=== PATIENT | female | born 1945 | race Caucasian/White ===

== ENCOUNTER 2019-03-20 12:01 | Observation (INO) | payer MEDICARE, OTHER ==
[~2019-03-20] VITALS: Ht 162.6 cm; Wt 49.4 kg
--- OUTSIDE RECORDS SUMMARY | 2019-03-20 12:03 | XMS REPORT | Clinical Summary ---
Author Author [facility] Organization [facility] Address Unknown Phone Unavailable Care Team Providers Care Optoelectronic Technician Name Role Phone Rogers Pickard MD PCP Allergies Not on File Medications Not on file Active Problems Not on file Encounters Care Team Description Date Type Specialty Jomar Rinaldi MD Breast cancer screening 12/18/2018 Hospital Radiology Encounter Jomar Rinaldi MD Breast cancer screening (Primary Dx) 12/04/2018 Transcribe Access Orders after 03/19/2018 Social History Date Tobacco Use Types Packs/Day Years Used Never Assessed Sex Assigned at Date Recorded Not on file Industry Job Start Date Occupation Not on file Not on file Not on file Travel End Travel History Travel Start No recent travel history available. Last Filed Vital Signs Not on file Plan of Treatment Health Maintenance Due Date Last Done Comments COLONOSCOPY SCREENING 1996 SHINGLES VACCINES (#1) 1996 65+ PNEUMOCOCCAL VACCINE 2011 (1 of 2 - PCV13) INFLUENZA VACCINE 02/05/2019 BREAST CANCER SCREENING 12/18/2020 12/18/2018, 12/13/2017, 11/22/2016, Additional history exists Procedures Comments Procedure Name Priority Date/Time Associated Diagnosis MAMMO BREAST SCREEN Routine 12/18/2018 Breast cancer screening TOMOSYNTHESIS BILATERAL 11:49 AM CDT after 03/19/2018 Results * Mammo Breast Screen Tomosynthesis Bilateral (12/18/2018 11:49 AM CDT) Specimen Narrative Performed At EXAMINATION: MAMMO BREAST SCREEN TOMOSYNTHESIS BILATERAL [facility] COMPARISON:Mammograms dated 09/2014 through 12/2017 TECHNIQUE: Bilateral digital screening mammography was performed with tomosynthesis and interpreted using computer-assisted detection. CLINICAL HISTORY: 73-year-old asymptomatic female with history of previous benign right breast biopsy. No personal or family history of breast malignancy. The patient presents for routine screening. FINDINGS: The breast tissue is heterogeneously dense which may obscure small masses. There are multiple bilateral oval circumscribed masses of various sizes which are similar in appearance. Prior mammograms dating back to 2014. There are no new suspicious masses, calcifications or distortions in either breast.There has been no significant interval change compared to prior. IMPRESSION: No specific mammographic features of breast malignancy. BI-RADS 2:BENIGN Recommend comparison with physical examination. In the absence of new clinical findings, the patient should return for bilateral screening mammography in 1 year.Screening bilateral breast ultrasound is offered for dense tissue. This facility is accredited by the [employer] for Mammography. A negative x-ray report should not delay biopsy if a dominant or clinically suspicious mass is present.Not all cancers are identified by x-ray. 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
[2019-03-20] MEDS ORDERED: ASPIRIN 81 MG CHEW TAB PO ONE (12:15)
[2019-03-20] MEDS ORDERED: MORPHINE SULFATE INJ 4 MG/ML INJ 1ML IV PRN ×2 (12:15→17:15)
[2019-03-20 12:40] LABS: BASOPHILS # (AUTO) 0.1 (0.0-0.1); EOSINOPHILS # (AUTO) 0.1 (0.0-0.4); EOSINOPHILS % 2.2 % (0.0-6.0); HEMATOCRIT 32.9 % (34.2-44.1); HEMOGLOBIN 11.1 g/dL (12.0-16.0); LYMPHOCYTES # (AUTO) 1.1 (1.0-3.2); LYMPHOCYTES % 17.3 % (18.0-39.1); MEAN CORPUSCULAR HEMOGLOBIN 31.5 pg (28-32); MEAN CORPUSCULAR HGB CONC 33.7 g/dL (31-35); MEAN CORPUSCULAR VOLUME 93.5 fL (81-99); MONOCYTES # (AUTO) 0.7 (0.2-0.8); MONOCYTES % 10.4 % (4.4-11.3); NEUTROPHILS # (AUTO) 4.3 (2.1-6.9); NEUTROPHILS % 68.6 % (38.7-80.0); PLATELET COUNT 153 x10e3/uL (140-360); RED BLOOD COUNT 3.52 x10e6/uL (3.6-5.1); RED CELL DISTRIBUTION WIDTH 13.2 % (11.7-14.4)
[2019-03-20 13:02] LABS: ALANINE AMINOTRANSFERASE 9 IU/L (0-55); ALBUMIN/GLOBULIN RATIO 0.9 (0.8-2.0); ALKALINE PHOSPHATASE 50 IU/L (40-150); ANION GAP 10.8 mmol/L (8-16); BLOOD UREA NITROGEN 10 mg/dL (7-26); BUN/CREATININE RATIO 13 (6-25); CALCIUM 8.6 mg/dL (8.4-10.2); CARBON DIOXIDE 28 mmol/L (22-29); CHLORIDE 100 mmol/L (98-107); CREATINE KINASE 22 IU/L (29-168); CREATININE, SERUM 0.78 mg/dL (0.57-1.11); EST GLOMERULAR FILTRATION RATE > 60 ML/MIN (60-); GLUCOSE 91 mg/dL (74-118); POTASSIUM 3.8 mmol/L (3.5-5.1); SODIUM 135 mmol/L (136-145)
[2019-03-20] MEDS ORDERED: MORPHINE SULFATE 2 MG/ML SYR 1ML IV PRN (13:45)
[2019-03-20] MEDS ORDERED: ONDANSETRON HCL INJ 2MG/ML 2ML 2 MG/ML VIAL IV PRN (13:45)
--- NOTE | 2019-03-20 15:00 | NUR ---
PT INFORMED ON PLAN OF CARE, OFFERED PAIN MEDICATION BUT CURRENTLY DENIES PAIN OR DISCOMFORTS, NO NEEDS VOICED AT THIS TIME, BREATHING EVEN/UNLABORED, NON-DIAPHORETIC, NAD NOTED, WILL CONTINUE TO MONITOR.
--- OUTSIDE RECORDS SUMMARY | 2019-03-20 15:40 | XMS REPORT | Clinical Summary ---
Author Author [facility] Organization [facility] Address Unknown Phone Unavailable Care Team Providers Care Auditing Clerk Name Role Phone Rogers Pickard MD PCP [...] tissue. This facility is accredited by the [employer] for Mammography. A negative x-ray report should not delay biopsy if a dominant or clinically suspicious mass is present.Not all cancers are identified by x-ray. 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
--- NOTE | 2019-03-20 16:50 | NUR ---
ECHOVASCULAR TECH AT BEDSIDE AT THIS TIME FOR EXAM.
--- NOTE | 2019-03-20 17:00 | Diagnostic Imaging Report ---
Examination: Single AP view of the chest. COMPARISON: None. INDICATION: Chest pain IMPRESSION: 1. Lines and Tubes: None 2. Lungs are grossly clear. No consolidation or effusion. 3. Cardiomediastinal silhouette is normal. Pulmonary vasculature is normal. 4. No acute bony abnormalities. Signed by: Dr. Luis Gomez M.D. on 03/20/2019 4:57 PM
[2019-03-20 19:29] VITALS: BP 109/54
--- NOTE | 2019-03-20 19:31 | NUR ---
patient is a new admit. patient is resting comfortably in bed. bed is in lowest position and call light is within reach. will continue to monitor patient.
[2019-03-20 19:33] VITALS: BP 109/54
[2019-03-20] MEDS ORDERED: TRAZODONE HCL150 MG PO (19:48)
[2019-03-20] MEDS ORDERED: BUDESONIDE EC3 MG PO (19:48)
[2019-03-20] MEDS ORDERED: UNITHROID88 MCG PO (19:48)
[2019-03-20] MEDS ORDERED: ETHINYL ESTRADIOL PO (19:48)
[2019-03-20 20:00] VITALS: BP 109/54
[2019-03-20 21:20] LABS: CREATINE KINASE MB 1.2 ng/mL (0-5.0)
--- NOTE | 2019-03-20 23:04 | NUR ---
Cardiology Consult Dictation# [id number]
[2019-03-21] VITALS: BP 115/58
[2019-03-21 04:00] VITALS: BP 101/63
--- NOTE | 2019-03-21 05:12 | Consultation ---
DATE OF CONSULTATION: 03/20/2019 Cardiology Consultation REQUESTING PHYSICIAN: Jas Gale MD. REASON FOR CONSULTATION: Chest pain. HISTORY OF PRESENT ILLNESS: This is a 73-year-old women with history of colitis and hypothyroidism, who presents with complaints of chest pain. The patient reports she began having squeezing chest pain this morning, 10/10 in severity with radiation to her jaw, ears, and back. The pain was not associated with any diaphoresis or shortness of breath and lasted approximately 10 to 15 minutes. Due to the symptoms, she presented to the ER for further evaluation. She denies any edema orthopnea or PND, but does note that she has been more fatigued than normal for the last week. REVIEW OF SYSTEMS: Negative except as per HPI. PAST MEDICAL HISTORY: 1. Lymphocytic colitis. 2. Hypothyroidism. PAST SURGICAL HISTORY: 1. Back surgery. 2. Thyroidectomy. 3. Hysterectomy. 4. Hemorrhoidectomy. SOCIAL HISTORY: She smoked half pack to one pack a day for 50 years, quit smoking four years ago. Denies any illicit drugs, but does drink alcohol on occasion. FAMILY HISTORY: Pertinent for mother, who had a myocardial infarction in the 80s. ALLERGIES: NO KNOWN DRUG ALLERGIES. MEDICATIONS: Please see medication list. PHYSICAL EXAMINATION: VITAL SIGNS: Temperature 97.1 degrees, pulse 59, respiratory rate 18, blood pressure 160/50, and oxygen saturation 99% on room air. GENERAL: Well-developed and well-nourished, elderly woman in no acute distress. HEENT: Normocephalic and atraumatic. Pupils are equal. No scleral icterus. NECK: Supple. No thyromegaly or cervical lymphadenopathy. No carotid bruits. LUNGS: Clear to auscultation bilaterally. No wheezes or crackles. CARDIOVASCULAR: Normal rate, regular rhythm. No murmur. Normal S1 and S2. ABDOMEN: Soft and nontender. EXTREMITIES: No edema. NEUROLOGIC: Nonfocal. LABORATORY DATA: WBC 6.25, hemoglobin 11.1, hematocrit 32.9, and platelets 153. Sodium 135, potassium 3.8, chloride 100, CO2 of 28, BUN 10, creatinine 0.78, and troponin is 0.010. BNP 127.2. EKG, sinus bradycardia, otherwise normal ECG. Chest x-ray, no consolidation or effusion. Pulmonary vasculature is normal. Cardiomediastinal silhouette is normal. IMPRESSION: 1. Chest pain. 2. History of tobacco use. 3. Hypothyroidism. 4. Colitis. RECOMMENDATIONS: Trend cardiac markers to rule out myocardial infarction. Monitor the patient on telemetry. Check fasting lipid panel. Start aspirin 81 mg p.o. daily. Given the patient's risk factors, ischemic evaluation is warranted with nuclear stress test. If the patient ruled out for myocardial infarction and is chest pain free, she may be able to go home tomorrow with plans for outpatient nuclear stress test, however, if pain recurs, we will need to proceed with stress test while inpatient. Check fasting lipid panel in the morning. Thank you for this consult. We will continue to follow. Jackelyn Stokes MD [facility] /[id number]
--- NOTE | 2019-03-21 06:53 | NUR ---
report given to day nurse. patient is resting comfortably in bed. bed is in lowest position and call light is within reach.
[2019-03-21 08:00] VITALS: BP 95/55
[2019-03-21] MEDS ORDERED: LIPITOR20 MG PO (08:37)
[2019-03-21] MEDS ORDERED: ASPIRIN EC81 MG PO (08:37)
[2019-03-21] MEDS ORDERED: ASPIRIN 81 MG ENTERIC COATED PO SCH (09:00)
[2019-03-21 12:04] VITALS: BP 93/51
--- NOTE | 2019-03-23 04:01 | Discharge Summary ---
ADMISSION DIAGNOSES: Chest pain, hypothyroidism, history of colitis, chronic dry eyes. DISCHARGE DIAGNOSES: Chest pain, hypothyroidism, history of colitis, chronic dry eyes, rule out myocardial infarction. HISTORY: The patient has a history of hypothyroidism, colitis, chronic dry eye syndrome. SURGICAL HISTORY: Hemorrhoidectomy, right shoulder and right hip. FAMILY HISTORY: Noncontributory. SOCIAL HISTORY: The patient drinks wine daily and quit smoking cigarettes about 4 years ago. HOSPITAL COURSE: A 73-year-old female admits with sharp pain that started in ears, then radiated down to her throat, jaw, chest and to her back. It lasted about 10 to 20 minutes before resolving spontaneously. She denies dizziness, syncope, shortness of breath, and diaphoresis. On admission, EKG showed sinus tachycardia. Troponins were negative x3. Chest x-ray was negative. Cardiology was consulted, who said that if the chest pain resolved, she could follow up for an outpatient stress test. She was given new prescriptions for Lipitor and aspirin. She will follow up with primary care in 1 to 2 weeks and Cardiology for stress test. The patient and daughter understand discharge instructions and agrees to plan. Vital signs stable, the patient afebrile. Dictated by Jewels Hayes NP MD BAL[facility] Marie/BRYCE /[id number]
== END 2019-03-21 15:52 | disposition home or self-care (01) ==
LOC: ER 12:01 → ERHOLD 13:38 → IMCU 18:23
PROVIDERS: ADMIT Internal Medicine; ATTEND Internal Medicine
DX: R07.9 Chest pain, unspecified (principal); F17.210 Nicotine dependence, cigarettes, uncomplicated; E03.9 Hypothyroidism, unspecified; Z90.710 Acquired absence of both cervix and uterus; H04.129 Dry eye syndrome of unspecified lacrimal gland; K52.9 Noninfective gastroenteritis and colitis, unspecified
CPT/HCPCS: 36415 ×2; 71045; 80053; 80061; 82550 ×2; 82553 ×2; 83880; 84484 ×2; 85025; 85379; 93005; 93306; 99285; G0378 ×2